=== PATIENT | female | born 1965 | race American Indian/Alaskan Native ===

== ENCOUNTER 2018-03-27 23:15 | Emergency (ER) | payer OTHER ==
[2018-03-27 23:50] VITALS: BP 136/92
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
[2018-03-28] MEDS ORDERED: MOTRIN PO ONE (02:40)
[2018-03-28] MEDS ORDERED: MOTRIN ONE (02:44)
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
== END 2018-03-28 04:15 | disposition home or self-care (01) ==
LOC: ED 23:15
DX: M25.552 Pain in left hip (principal); M54.32 Sciatica, left side; E11.9 Type 2 diabetes mellitus without complications
CPT/HCPCS: 99283